=== PATIENT | male | born 2000 | race Two or more races ===

== ENCOUNTER 2024-09-11 14:09 | Emergency (ER) | payer BC ==
[~2024-09-11] VITALS: Ht 175.3 cm; Wt 88.4 kg
[2024-09-11 14:22] VITALS: BP 129/72; PULSE 72; RESP 18; TEMP 98.4; O2SAT 99
== END 2024-09-11 15:20 | disposition left against medical advice (07) ==
LOC: ER 14:09
DX: M79.641 Pain in right hand (principal); Z53.21 Procedure and treatment not carried out due to patient leaving prior to being seen by health care provider